=== PATIENT | male | born 1970 | race Caucasian/White ===

== ENCOUNTER 2021-08-23 15:02 | Emergency (ER) | payer OTHER ==
[2021-08-23] VITALS (15 sets, daily range): BP systolic 126–160; BP diastolic 73–94
[~2021-08-23] VITALS: Ht 175.3 cm; Wt 62.0 kg
[2021-08-23] MEDS ORDERED: HYDROCO/APAP1 TA9 PO (18:10)
== END 2021-08-23 18:37 | disposition home or self-care (01) | DRG 563 ==
LOC: ED 15:02
DX: S82.041A Displaced comminuted fracture of right patella, initial encounter for closed fracture (principal); I10 Essential (primary) hypertension; W01.0XXA Fall on same level from slipping, tripping and stumbling without subsequent striking against object, initial encounter; Y92.149 Unspecified place in prison as the place of occurrence of the external cause
CPT/HCPCS: L1830

== ENCOUNTER 2024-05-16 23:51 | Emergency (ER) | payer OTHER ==
[~2024-05-16] VITALS: Ht 175.3 cm; Wt 69.1 kg
[~2024-05-16 23:51] MED LIST: HYDROCO/APAP1 TA9 PO; LIPITOR20 M1 PO; LISINOPRIL10 MG PO; MOTRIN IB200 MG PO; SM PAIN RELIEV PO; VENTOLIN HFA108 MCG IN
[2024-05-17] MEDS ORDERED: IBUPROFEN 800 MG/TAB PO ONE (00:05)
[2024-05-17] MEDS ORDERED: ACETAMINOPHEN 500 MG TAB PO ONE (00:05)
[2024-05-17 02:18] VITALS: BP 145/84
== END 2024-05-17 02:19 | disposition designated cancer center or children's hospital (05) | DRG 999 ==
LOC: ED 23:51
DX: S02.631A Fracture of coronoid process of right mandible, initial encounter for closed fracture (principal); S02.31XA Fracture of orbital floor, right side, initial encounter for closed fracture; S02.19XA Other fracture of base of skull, initial encounter for closed fracture; S02.40EA Zygomatic fracture, right side, initial encounter for closed fracture; I10 Essential (primary) hypertension; Y04.0XXA Assault by unarmed brawl or fight, initial encounter; Y92.149 Unspecified place in prison as the place of occurrence of the external cause

== ENCOUNTER 2024-06-13 13:30 | Emergency (ER) | payer OTHER ==
[~2024-06-13] VITALS: Ht 175.3 cm; Wt 68.0 kg
[2024-06-13] VITALS (7 sets, daily range): BP systolic 140–167; BP diastolic 74–80
[2024-06-13] MEDS ORDERED: lamiVUDine/ZIDOVUDINE 150 MG/300 MG COMBO TAB PO ONE (15:15)
[2024-06-13] MEDS ORDERED: Raltegravir Potassium 400 MG TAB PO ONE (15:20)
[2024-06-13 15:28] LABS: ALBUMIN 4.4 g/dL (3.2-5.0); BILIRUBIN, TOTAL 1.8 mg/dL (0.2-1.3); TOTAL PROTEIN 7.2 g/dL (6.3-8.2)
[2024-06-13] MEDS ORDERED: LIDOCAINE HCL IM ONE (16:40)
[2024-06-13] MEDS ORDERED: [UNRECOGNIZED DRUG - OTHER] IM ONE (16:40)
[2024-06-13] MEDS ORDERED: METRONIDAZOLE500 MG PO (16:45)
[2024-06-13] MEDS ORDERED: DOXYCYCLINE100 MG PO (16:45)
[2024-06-13] MEDS ORDERED: LAMIVUDINE PO (16:45)
[2024-06-13] MEDS ORDERED: TENOFOVIR DISOPROXIL FUMARATE PO (16:45)
[2024-06-13] MEDS ORDERED: ISENTRESS400 MG PO (16:45)
[2024-06-13] MEDS ORDERED: LIDOCAINE HCL 1% (10MG/ML) 100 MG/10 ML MDV IM SCH ×2 (17:00)
== END 2024-06-13 17:34 | disposition designated cancer center or children's hospital (05) | DRG 923 ==
LOC: ED 13:30
PROVIDERS: Family Medicine
DX: T74.21XA Adult sexual abuse, confirmed, initial encounter (principal); Y07.9 Unspecified perpetrator of maltreatment and neglect; Z20.6 Contact with and (suspected) exposure to human immunodeficiency virus [HIV]; I10 Essential (primary) hypertension; Z72.0 Tobacco use; Y92.149 Unspecified place in prison as the place of occurrence of the external cause